=== PATIENT | male | born 1945 | race Caucasian/White ===

== ENCOUNTER 2023-06-05 20:52 | Emergency (ER) | payer MEDICARE, MEDICAID, SELFPAY ==
[2023-06-05 21:05] VITALS: BP 132/74; BP 138/70; PULSE 50; PULSE 66; RESP 18; TEMP 36.4; O2SAT 94; O2SAT 98; BMI 21.1
[2023-06-05 21:12] VITALS: BP 138/70; PULSE 66; RESP 18; TEMP 37; O2SAT 98
[2023-06-05 22:00] VITALS: BP 128/77; PULSE 69; RESP 17; TEMP 37.1; O2SAT 98
--- NOTE | 2023-06-05 22:31 | ED_ITS ---
HPI - Male Genitourinary General Chief complaint: Urogenital-Male Stated complaint: morrison catheter issues, per ems Time Seen by Provider: 06/05/23 22:21 Source: patient and EMS Mode of arrival: EMS History of Present Illness HPI Narrative: Patient comes to emergency room from [facility] for Morrison replacement. The facility staff reports that patient is due for a Morrison catheter changed and they were unable to do so. Patient has no complaints. Review of Systems Review of Systems: Constitutional : No Weight loss, No Fever, No Chills, No Night Sweats, No Fatigue, No Malaise ENT/Mouth : No Hearing loss, No Ear Pain, No Nasal Congestion, No Sinus Pain, No Hoarseness, No sore throat, No Rhinorrhea, No Swallowing Difficulty Eyes: No Eye Pain, No Swelling, No Redness, No Foreign Body, No Discharge, No Vision Changes Cardiovascular : No Chest Pain, No SOB, No Dyspnea on Exertion, No Orthopnea, No Edema, No Palpitations Respiratory : No Cough, No Sputum, No Wheezing, No Smoke Exposure, No Dyspnea Gastrointestinal : No Nausea, No Vomiting, No Diarrhea, No Constipation, No abdominal Pain, No Hematochezia, No Melena Genitourinary : Complaining of Morrison catheter change issue, No Dysuria, No Urinary Frequency, No Hematuria, No Urinary Incontinence, No Urgency, No Flank Pain, No Urinary Flow Changes, No Hesitancy Musculoskeletal : No joint pain, No Myalgias, No Joint Swelling Skin : No Skin Lesions, No rash Neuro : No Weakness, No Numbness, No Paresthesias, No Loss of Consciousness, No Dizziness, No Headache Psych : No Anxiety/Panic, No Depression, No SI/HI/AH/VH, No Social Issues, Heme/Lymph: No Bruising, No Bleeding,No Lymphadenopathy Endocrine : No Polyuria, No Polydipsia, No Temperature Intolerance [facility] Past Medical History Medical History (Updated 06/05/23 @ 22:43 by Imani Ramirez MD) Anemia BPH (benign prostatic hyperplasia) Brain TIA Chronic pain syndrome Hypertension Hypothyroidism Parkinsons disease Schizophrenia Traumatic brain injury Unspecified dementia, mild, with mood disturbance Social History Social History Alcohol intake: former Smoked in Last 30 Days: No Use of substances other than those prescribed or required for medical reasons: No Advance Directives: No Advance Directives Information Provided: Yes Physical Exam Vital Signs: Vital Signs: Last Vital Signs Temp 98.6 F 06/05/23 21:12 Pulse 66 06/05/23 21:12 Resp 18 06/05/23 21:12 BP 138/70 06/05/23 21:12 Pulse Ox 98 06/05/23 21:12 O2 Del Method Room Air 06/05/23 21:12 BMI result Body Mass Index 21.1 Const: Other: Appearance: Alert. Oriented X3. No acute distress. Eyes: Pupils equal, round and reactive to light. ENT: Pharynx normal. Neck: Normal inspection. Neck supple. No lymph nodes noted. No crepitus CVS: Normal heart rate and rhythm. Pulses normal. Normal S1 and S2 Respiratory: No respiratory distress. Breath sounds normal. No Wheezing. No rales Abdomen: Soft and nontender. No rigidity. No distention. : Blocked Morrison catheter Skin: Skin warm and dry. Normal skin color. Normal skin turgor. Extremities: No lower extremity edema. No Lacerations. No Rash Neuro: Oriented X 3. No motor deficit. No sensory deficit. Moving all extremities. No slurred speech. CN 2 through 12 grossly intact Psych: calm, cooperative, normal affect Medical Decision Making Medical Decision Making MDM Narrative: -patient's Morrison catheter was easily changed. -urine is clear, no hematuria, Morrison catheter draining well -patient has no fever or UTI symptoms. UA will not be collected at this time. Discharge Plan Discharge Clinical Impression: Complication, blocked Morrison catheter Patient Disposition: Home, Self-Care Instructions: Morrison Catheter Placement and Care (ED) Additional Instructions: Please follow-up with your primary care physician tomorrow. If you have any worsening or new symptoms, please return to the emergency room or call 911
[2023-06-06] VITALS: BP 131/72; PULSE 67; RESP 18; TEMP 37; O2SAT 98
== END 2023-06-06 01:10 | disposition home or self-care (01) ==
PROVIDERS: Emergency Provider Emergency Medicine; PCP Emergency Medicine
DX: T83.9XXA Unspecified complication of genitourinary prosthetic device, implant and graft, initial encounter (principal); Y73.8 Miscellaneous gastroenterology and urology devices associated with adverse incidents, not elsewhere classified; Y92.9 Unspecified place or not applicable
CPT/HCPCS: 99283; 99284